=== PATIENT | male | born 1965 | race Caucasian/White ===

== ENCOUNTER 2017-03-28 16:50 | Inpatient (IN) | payer OTHER ==
[~2017-03-28] VITALS: Ht 175.3 cm; Wt 138.6 kg
[2017-03-28 19:54] VITALS: BP 110/62; PULSE 76; RESP 23; O2SAT 97
[2017-03-28] MEDS ORDERED: OXYC-474 PO (20:11)
[2017-03-28] MEDS ORDERED: DOCU250C2 PO (20:11)
[2017-03-28] MEDS ORDERED: ONDA4TAB6 PO (20:11)
[2017-03-28 20:55] VITALS: RESP 15; O2SAT 99
[2017-03-28] MEDS ORDERED: Ondansetron 2 mg/mL 2 mL Inj IVPUSH PRN (21:00)
[2017-03-28] MEDS ORDERED: Polyethylene Glycol (PEG) 17 Gm Powder PEG PRN (21:15)
[2017-03-28] MEDS ORDERED: oxyCODONE 1 mg/mL 5 mL Liquid TUBE PRN (21:15)
[2017-03-28] MEDS ORDERED: Dextrose 10% 250 ML IV PRN (21:20)
--- NOTE | 2017-03-28 21:34 | PCM.HPMED ---
Subjective Date of Service Mar 28, 2017 Primary Provider: Admitting Physician: Yayo Montiel MD Primary Care Physician: Kalpana Arevalo MD Attending Physician: Yayo Montiel MD Admit Status: Critical Care ([place] from [facility]) Chief Complaint: Shortness of breath requiring high flow oxygen History of Present Illness: Massimo Aaron is a 51-year-old male with sleep apnea and recent past medical history remarkable for diagnosis of squamous cell carcinoma of the base of the tongue who presents from [facility] with acute respiratory failure requiring high flow oxygen. Records from [facility] are limited and a request for discharge summary has been placed. According to history obtained from the patient he was seen at [facility] for a biopsy of the base of his tongue which was positive for squamous cell carcinoma for which he has been referred to [facility] for initiation of "chemoradiation" therapy as he is an [place] resident. The plan according to [facility] records is for the patient to be seen by Dr. Calderon and start chemoradiation therapy. The patient states that he has never had a PET scan performed. While at [facility] obtaining a biopsy via laryngoscopy the patient had a significant apnea period requiring urgent/emergent tracheostomy and a PEG tube was eventually placed later . At [facility] the patient required high flow oxygen at night greater than 25 L/m at an FiO2 of more than 0.5. The patient states that he has a history of sleep apnea but does not know the exact etiology if it is central or obstructive. The patient states that he has had a chronic cough for approximately the last year which is worse at night and has noted orthopnea not liking to lie flat. The patient denies headaches, chest pain, abdominal pain, nausea, leg swelling, unusual rashes or bruising or bleeding. Review of Systems: A comprehensive review of systems was obtained and all are negative except for what is included in the history of present illness. 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 Hx Alcohol Use: Yes Alcoholic Drinks Per Day: 1-2 beers a week Hx Substance Use: No Hx Tobacco Use: No Smoking Status: Never Smoker Living Arrangement: with Family Exam Vital Signs Vital Sign - Last Date Time Temp Pulse Resp B/P Pulse Ox O2 Delivery O2 Flow Rate FiO2 03/28/17 20:55 72 15 99 40 30 03/28/17 20:27 Tracheostomy 03/28/17 19:54 37.0 110/62 Exam General: Morbidly obese middle-aged man with tracheostomy in place with high flow oxygen in place and conversational dyspnea Eyes: Pupils equal round and reactive to light, extraocular motion intact, mild icteric sclera, noninjected conjunctiva HENT: Normocephalic atraumatic, moist mucous membranes without central cyanosis , oropharynx clear without purulent exudate or cobblestoning mucosa Neck: Supple, trachea midline with tracheostomy in place no drainage around ostomy site, without noted thyromegaly or JVD Cardiovascular: Regular rate and regular rhythm, S1-S2 present, no S3-S4, without murmurs rubs or gallops noted Lungs: Clear to auscultation bilaterally without wheezing rales or rhonchi Abdomen: Soft, nontender, nondistended, tympanic to percussion, normal active bowel sounds, without organomegaly however difficult to assess due to body habitus, peg tube in place without purulent or serosanguineous drainage around site Extremities: No cyanosis clubbing or edema noted, pulses intact bilaterally at dorsalis pedis and radial : No Chatman catheter in place Skin: Warm and dry Neuro: Nonfocal neurologic exam, cranial nerves II through XII intact, sensation intact in extremities Psych: Normal mood and affect Assessment & Plan Massmio Aaron is a 51-year-old male with sleep apnea and recent past medical history remarkable for diagnosis of squamous cell carcinoma of the base of the tongue who presents from [facility] with acute respiratory failure requiring high flow oxygen. # Acute hypoxic respiratory failure - On physical exam the patient's tracheostomy is patent without drainage, lung sounds are clear, however he has noted conversational dyspnea - The patient states that he has a diagnosis of sleep apnea however he is unsure if it is central or obstructive - The patient was seen at [facility] for squamous cell carcinoma of the base of the tongue making obstructive sleep apnea likely - The patient had a tracheostomy performed at [facility] however required high flow oxygen greater than 25 L a minute at an FiO2 of 0.4 and greater to maintain oxygen saturation at night - Tracheostomy and high flow oxygen order sets in place for respiratory therapy - Obtain discharge summary from [facility] to assess ventilation requirements on high flow oxygen # Newly diagnosed squamous cell carcinoma of the base of the tongue - Diagnosed on pathology report at [facility] - Patient's plan according to the [facility] documentation available is to start "chemoradiation" therapy with [facility] oncology department under the care of - Patient will likely require a PET scan to assess for possible metastatic disease as an outpatient - A consult has been placed for Dr. Calderon if he would like to meet the patient prior to any outpatient appointment - Obtain discharge summary paperwork from [facility] # Chronic sleep apnea - The patient states that he has a diagnosis of sleep apnea however he is unsure if it is central or obstructive - The patient was seen at [facility] for squamous cell carcinoma of the base of the tongue making obstructive sleep apnea likely - Tracheostomy and high flow oxygen order sets in place for respiratory therapy - Patient is likely a chronic CO2 retainer, with this in mind goal O2 therapy for oxygen saturation between 88 and 94% # Chronic morbid obesity - Records indicate that the patient did not require any insulin therapy, with relatively normal blood glucose however the patient has been on clear liquid diet with 3 times daily PEG tube feedings - Hemoglobin A1c ordered - Low correction scale regular insulin - Clear liquid diet ordered - Dietitian consultation given need for PEG tube feedings Pain medications available when necessary, however records indicate that the patient has not requested or required medications recently while at [facility] DVT prophylaxis: Records indicate the patient was giving subcutaneous heparin 5000 3 times a day while at [facility] this will be continued GI prophylaxis: Famotidine IV given patient's recent PEG tube placement CODE STATUS full The patient is admitted to the CCU at inpatient status given her presenting symptoms, likely diagnosis, possible complications, and required treatments expected length of stay is greater than 2 midnights. Pain Evaluation: Adequate Pain Control GI Prophylaxis: H2 pavel VTE Prophylaxis Indicated: Meets Criteria for Anticoag Therapy VTE Prophylaxis: Sub-Q Heparin (Unfractionated) Resuscitation Status: CPR: Attempt Resuscitation Time spent 50 minutes critical time spend Attending Statement The patient was seen and examined together with Dr. Palacios on 03/28 and I agree with the history, exam and plan as outlined in the note above. Zev Piedra DO Mar 28, 2017 21:33 Kvng Aguilar MD Mar 29, 2017 02:05
[2017-03-28 21:50] LABS: Mean Corpuscular Hemoglobin 27.2 pg (27.0-35.0); Mean Corpuscular Volume 81.5 fL (81-100); Platelet Count 438 bil/L (150-400)
[2017-03-28 22:22] LABS: BASOPHILS % (AUTO) 0 % (0-3); EOSINOPHILS % (AUTO) 0 % (0-5); MONOCYTES % (AUTO) 7 % (4-12); NEUTROPHILS % (AUTO) 71 % (40-74)
--- NOTE | 2017-03-28 22:24 | NUR ---
CCU Admit note Received patient direct transfer from [facility] in [place]. Arrived via EMS acls transport @ 1910 via [facility], pt has trach to collar with 7L 02, peg tube clamped. Pt ambulatory, transfer self from [facility] to bed w/o difficulty or sob. IV to SL. Pt on clear liquid diet, which was previously cleared at [facility] to be on clears and getting tube feed boluses TID as well. Pt is then placed on trach to high flow 02 @ 30%/40L. mrsa nasal screen sent. Explained POC to pt and .
[2017-03-28] MEDS ORDERED: Heparin 5,000 Unit/mL Inj ONE (23:11)
[2017-03-28] MEDS: Heparin 5,000 Unit/mL Inj SUBQ SCH (23:14)
[2017-03-29] VITALS (15 sets, daily range): BP systolic 111–129; BP diastolic 53–90; PULSE 60–85; RESP 15–24; O2SAT 90–99
[2017-03-29] MEDS: Insulin Human REGular 300 Unit/3 mL Inj SUBQ SCH ×3 (03:44→14:30)
--- NOTE | 2017-03-29 04:42 | ABG ---
DateTimeAnalyzed 04:36:00 -_ pH ____7.417 - 7.350 7.450 pCO2 ___43.1__ -mmHg 35.0 45.0 pO2 ___69.3__ -mmHg 69.0 116 HCO3- ___27.2__ -mmol/L 22.0 26.0 ABE ____2.8__ -mmol/L -2.0 2.0 tHb ___15.2__ -g/dL O2Hb ___90.8__ -% COHb ____1.3__ -% MetHb ____0.8__ -% sO2 ___92.7__ -% 25.0 FIO2 ___30.0__ -% Drawn By MM - Date/Time Notified____ 04:42:00 -_ Spontaneous_RR ___18.0__ -b/min Liter_Flow ___40.0__ -L/min Oxygen Device 1 HFNC - Notified By MM - Notified Whom DR HASANDRAS - B 758 -mmHg tO2 ___19.4__ -Vol% Kulwinder test _Positive -
[2017-03-29] MEDS: Famotidine Inj 50 ML IV SCH ×2 (08:30→19:55)
[2017-03-29] MEDS: Heparin 5,000 Unit/mL Inj SUBQ SCH ×2 (09:52→17:30)
--- NOTE | 2017-03-29 10:25 | DRSVH ---
PROCEDURE: X-RAY CHEST ONE VIEW, PORTABLE ([id number]) INDICATIONS: hypoxic TECHNIQUE: One view of the chest was acquired. COMPARISON: None. FINDINGS: Surgical changes and devices: Tracheostomy. Partially visualized left upper quadrant surgical tube. Lungs and pleura: No pleural effusions or pneumothorax. Lungs are clear. Mediastinum: Mediastinal contours appear normal. Heart size is normal. Bones and chest wall: No suspicious bony lesions. Overlying soft tissues appear unremarkable. IMPRESSION: Tracheostomy. Lungs are clear. Dictated by: Jim Sales M.D. on 03/29/2017 at 10:21 Approved by: Jim Sales M.D. on 03/29/2017 at 10:22
--- NOTE | 2017-03-29 10:27 | NUR ---
Evaluation completed. Please go to "Notes" then click on "Assessments and Notes" (bottom left corner of screen). Then select appropriate discipline tab on top of screen.
--- NOTE | 2017-03-29 11:26 | PCM.CHPMED ---
Subjective Date of Service: Mar 29, 2017 Provider requesting consult: Yayo Montiel MD Primary Physician: Admitting Physician: Yayo Montiel MD Primary Care Physician: Kalpana Arevalo MD Attending Physician: Yayo Montiel MD Chief Complaint: Chief Complaint: Squamous cell cancer of the base of the tongue History of Present Illness: PULMOLOGY CONSULT NOTE 51 year old male with scant medical hx significant for HILARIO compliant with CPAP who was transferred to our facility from [facility] following an extended stay there after undergoing biopsy of a 3.6cm mass at the base of the tongue. As the story goes, the patient began having progressive dysphagia and cough that began 6 months ago, with 2 episodes of trent hemoptysis that began 3 months. Pt sought out medical care and was seen in urgent care where it was diagnosed as a large epistaxis. His dysphagia continued and he began throwing up undigested food within an hour of eating, many times with it coming out his nose. He was eventual sent to ENT and eventually sent for CT scan which diagnoses a 3.6 cm soft tissue mass and the base of the tongue with high grade narrowing of the airway. The patient was sent to [facility] for biopsy which identified Squamous cell carcinoma with P16 mutation, however, during induction of anesthesia for the procedure the patient became severely apneic and was taken to the OR for emergent tracheostomy placement. This followed with an 8 day stay which included placement of a PEG tube. Initially it appears the pt required significant O2 support, being on 50L High flow. This appears to be weaned down to room air during the days and reapplied while he sleeps due to desaturations. Today he denies any fever, chills, trouble breathing (although he is still learning to talk with the trach), or CP, or nausea. He does show anxiety about switching from high flow but is otherwise complaint free. Review of the patient's social hx reveals he has never smoked or used recreational drugs. He also never chewed tobacco. However, he did grow up in a house with smokers and worked in the [employer] for a number of years. 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 He drinks 1-2 beers/week but much less recently. For what it's worth, no contact with TB and recent PPD was negative. Pulmonology was asked to consult to help evaluate the trach and use of high flow due to nighttime desaturations. Review of Systems: See HPI. 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 Sleep apnea previously diagnosed as obstructive with compliance with CPAP Hx Any Other Health Problems?: NoHx Diabetes: NoBedside Blood Glucose: 112 Surgical History Tracheostomy PEG tube Right hand ORIF Home Medications Oxycodone Ondansetron Allergies: Coded Allergies: No Known Allergies (Verified Allergy, Unknown, 03/28/17) Family History Family History Mother has dementia in her 80s Father had brain cancer in his 50s related to radiation exposure Sister had head and neck cancer of unknown etiology in her 50s 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 Hx Alcohol Use: YesAlcoholic Drinks Per Day: 1-2 beers a week Hx Substance Use: NoHx Tobacco Use: No Smoking Status: Never Smoker Living Arrangement: with Family Exam Vital Signs Vital Sign - Last Date Time Temp Pulse Resp B/P Pulse Ox O2 Delivery O2 Flow Rate FiO2 03/29/17 10:53 65 18 94 6.00 21 03/29/17 08:30 Tracheostomy 03/29/17 08:30 36.5 126/75 Intake and Output 03/28/17 03/28/17 03/29/17 Cumulative From/Thru 15:00 23:00 07:00 03/28/17 20:07 - 03/29/17 06:24 Intake Total 390 ml 390 ml Output Total 300 ml 300 ml Balance 90 ml 90 ml Intake Oral 360 ml 360 ml IV Total 30 ml 30 ml Output Urine Total 300 ml 300 ml # Bowel Movements 0 0 General: Alert, Oriented X3 Head: Normal Eyes: PERRLA, EOMI Mouth: Mucous Membr Moist/[place], Other (unable to view tumor; ) Chest & Lungs: Chest Wall Normal, Expiratory wheezes Cardiovascular: Regular Rate/Rhythm (difficult to auscultate on exam; ) Abdomen: Non-tender, Normoactive bowel tones Extremities: Edema (mild) Neurological: Grossly Neurologically Intact Lab and Diagnostics Result Diagram: 03/28/17213103/28/172131 Assessment & Plan Assessment Most extremely unfortunate 51 year old male with medical hx consisting of HILARIO with stated CPAP compliance who was transferred here from [facility] following biopsy of squamous cell carcinoma at the base of the tongue. During induction of anesthesia the patient became apneic and emergent tach was placed. Due to the size of the tumor it was also decided that the patient would benefit from PEG tube and this was subsequently placed. The patient initially required high flow O2 due to desaturations and continues to require this at night. The pattern of apnea s/p tracehostomy is unlikely to be obstructive, although this could be multi-factorial due to obesity and possible undiagnosed lung disease as he was wheezing on exam, or it could be related to central apnea. We have reviewed the CT from [facility] and the degree of airway obstruction, and with his recent course it is unlikely that he will be able to have the trach removed, at least until after Dr. Mccann (ENT) and Dr Calderon (oncology) are able to see the patient. Discussed plan going forward with the patient and answered questions. Problem List 1. Hypoxic respiratory failure 2. Obstructive sleep apnea; questionable central 3. Squamous Cell Carcinoma of the tongue 4. Obesity Plan 1. Await consults from ENT and ONC 2. Continue with nightime highflow O2 should the patient desaturate; recommend against pushing patient past O2sat 95% 3. Recommend barium swallow to assess for chronic aspiration causing pneumonitis. Problems: Pain Evaluation: Adequate Pain Control GI Prophylaxis: H2 pavel VTE Prophylaxis Indicated: Meets Criteria for Anticoag Therapy VTE Prophylaxis: Sub-Q Heparin (Unfractionated) Resuscitation Status: CPR: Attempt Resuscitation VTE Prophylaxis Contraindicate VTE [facility] Dev Contraindication: Hypervolemia Attending Statement I have seen and examined this patient with the resident physician. Vital signs , labs, imaging have been reviewed. I agree with the assessment and plan above. Please refer to my separately dictated progress note for any modifications to above. Marianna Hoyos M.D. Pulmonary and Critical Care medicine Pager [phone] Misael Jackson DO Mar 29, 2017 11:26 Marianna Hoyos MD Mar 30, 2017 16:11
--- NOTE | 2017-03-29 12:21 | NUR ---
NUTRITION ASSESSMENT: ASSESS: Pt is a 51yo M admitted for acute on chronic respiratory failure. Pt was recently diagnosed with squamous cell ca of the tongue. Pt recently had tracheostomy and PEG placement at [facility]. Per pt, he was originally started on continuous TF at the hospital and then was transitioned to bolus TF. Pt reported that he has been on bolus TF for only two days but was tolerating it well. He was cleared by [facility] for CL diet texture. Pt reported that he wants to just eat CL foods for comfort and wants to get main kcal/pro via TF. Pt is signed up to get home TF via [facility]. Oncology and ENT to consult. PMHX: squamous cell ca of tongue LABS: Reviewed. Cl 94, Bun 37, glu 123, ALT 57, Alb 4.3 MEDS: Reviewed. GI: 0 BM, no reported GI issues with TF tolerance SKIN: no major issues HOME TF: Bolus TF of Impact peptide 1.5 @8:00 500ml bolus, @12:00 500ml bolus, @ 18:00 320ml bolus. Flush PEG w/120ml H20 before and after each bolus. TF provided 1980kcal, 125g pro and 1736ml H20. CURRENT WTS: 138.6kg, BMI 45.1kg/m2, IBW: 72.7kg, adj bw: 89.2kg DIET: CL, PO intake for comfort EST. NEEDS: BMI, ca Kcals: 2230-2675kcal/day (25-30kcal/kg adj bw) Pro: 105-140g/day (1.2-1.5g/kg adj BW) Fluids: ~2500ml/day NUTRITION DIAGNOSIS: 1.) Chew/swallow difficulty related to ca and respiratory issues as evidence by pt with new head and neck ca, need for Tracheostomy and PEG for nutrition NUTRITION INTERVENTION: 1.) Recommend re-start bolus TF. Will use TF formula that is similar to Impact peptide 1.5 as this hospital does not carry Impact 1.5. Recommend bolus 500ml @ 8am, 500ml @ 1200 and 350ml @1800. Recommend fluid flush of 125ml H2O before and after each bolus. TF provides 1980kcal and 92g pro (85% kcal and 88% pro needs) 2.) Recommend continue CL diet or diet per ST. Pt's TF does not meet 100% of estimated needs due to the fact that pt is able to eat some food. Spoke with pt about the fact that his TF does not provide 100% of his protein needs. Discussed a couple options to make sure he gets adequate protein including drink Ensure CL, eat 1 Gelatein/day or add prosouce to TF. Pt opted to tried the geiger Gelatein and pt stated that he liked it so stated he would eat 1/day. 3.) Pt's A1C is 6.0 (pre-diabetes). Will monitor pt's BG levels. If BG levels are elevated he may benefit from formula switch to Glucerna 1.5. The osmolality of Glucerna is much higher than Vital or Impact so it may need to be started at either a lower bolus rate or possibly via continues to establish tolerance. MONITOR / EVAL: TF start, PO intake, GI, wt, labs, POC, nutrition status. Will continue to monitor per high nutrition risk guidelines.
--- NOTE | 2017-03-29 15:48 | NUR ---
Social Work- Initial Assessment/Multidisciplinary Rounds Data: See Initial Assessment for additional information. Pt discussed in rounds. Pt is a 51 year old male admitted for acute on chronic respiratory failure per H&P. Pt is a transfer from [facility] ([place], [place]). Pt is s/p trach/PEG tube placement. Pt's insurance is [employer] and [employer]. Pt's PCP is Kalpana Arevalo MD. SW met with pt at bedside regarding discharge plan, SW role explained. Pt alert and oriented x3. Capacity for self-care assessed. Pt resides in [place] with his where he is independent with ADLs and self care. Pt uses no DME and drives. Pt's is designated personal property assessor-Catherine Aaron [phone]. Verbal consent given to contact pt's if needed. Pt has paperwork from [facility] ([place], [place]). Pt's is DPOA. Pt has no HH or SNF history. Pt has a great support system between family and friends. Pt receives tube feeds and will need coordination of this at discharge if medically indicated. SW received T/C from [facility] regarding pt's tube feedings. Pt was referred to [facility] while at [facility]. Pt confirmed that he is agreeable to using [facility] for services at discharge. Pt has not been referred to any HH services for post-PEG tube management at this time. Pt provided with phone number on whiteboard. Pt has discharge planning checklist and instructed to call if needs arise. Pt agreeable. SW spoke with [facility] regarding referral. Ayanna is following. MARKETING STRATEGIST will assist with coordination of tube feedings and HH services if medically indicated. No discharge planning orders have been placed at this time. Assessment: Pt who is s/p trach/PEG placement. Plan: MARKETING STRATEGIST will assist with coordination of tube feedings and HH services if medically indicated. No discharge planning orders have been placed at this time. Pt anticipated to discharge home with pending medical course. SW will continue to follow. KIM Montanez Addendum: 03/29/17 at 1558 by ROSMERY JIANG SS Amended: Links added.
--- NOTE | 2017-03-29 16:36 | CONS ---
[address] [address] CONSULTATION REPORT PATIENT: PEPE DUGAN : 1965 MR#: [id number] ADMIT: 03/28/2017 JOB ID: [id number] DATE OF SERVICE: 03/29/2017 PULMONARY CONSULTATION NOTE: The patient is a 51-year-old man seen in consultation at the request of Dr. Montiel for evaluation of upper airway obstruction and tracheostomy that was placed recently. The patient was seen and evaluated with resident physician, Dr. Misael Jackson. Please refer to his separate detailed note for additional information. The following is a brief attending note. HISTORY OF PRESENT ILLNESS: The patient is a 51-year-old man with morbid obesity, BMI 45 and history of obstructive sleep apnea who had been having nonspecific symptoms including throwing up food, epistaxis, etc., for a few months. He was evaluated by ENT and found to have a mass in the supraglottic region. He underwent as CT which confirmed at 3.6 cm mass in the supraglottic region that was nearly occluding the upper airway. He was sent to [facility] for biopsies of this but quickly became hypotensive post induction and actually had to have an emergent tracheostomy placed three days ago. I do not yet have complete information regarding this. The records are still pending from [facility] including discharge summary. The patient was transferred here today for follow up care with his oncologic team including chemotherapy and radiation. Because of the tracheostomy, he was sent straight to the ICU but quickly downgraded to [facility]/step-down level because he is not on a ventilator. Of note, he is on high-flow oxygen both in the daytime and at night, although at night, he is having clear desaturations reportedly to the 70s. He is on high-flow oxygen at anywhere from 10-30 L with FiO2 around 30%. With regards to symptoms, he denies any change in breathing. He does have some cough, not much sputum. He has been drinking liquids including water, clear soup and denies any choking spells or difficulty swallowing. He was evaluated by speech today. Past medical history, social history, family history and review of systems as per Dr. Jackson's detailed separate note. Also a complete physical examination is per his note. General: Vital signs reviewed. He is morbidly obese but alert. He is having some difficulty with speech because of the trach as expected. This is a size 8 Shiley with a cuff down, but he does not have a Passy Kendra valve in place and so, for obvious reasons, speech is not clear. Chest is clear to auscultation. LABORATORIES: Reviewed. IMAGING: Chest x-ray shows clear pulmonary parenchyma overall. CT of the neck done March 08, 2017 is notable for a large base of tongue mass that is essentially filling the supraglottic region. ASSESSMENT AND RECOMMENDATIONS: 1. Status post tracheostomy on March 05, 2017. 2. Squamous cell carcinoma of the base of the tongue. 3. Upper airway obstruction secondary to the mass. 4. Acute hypoxic respiratory failure. This 51-year-old man with squamous cell carcinoma of the base of the tongue underwent emergent tracheostomy for complications following induction of anesthesia three days ago. The trach is essentially in place for his airway issues and he already has a PEG tube in place for his swallowing issues. Despite that, he is continuing to drink liquids and I wonder if his hypoxia is related to that. It is possible that he is aspirating all the liquids he is drinking and that is the reason for his hypoxia. I would like to ask speech to consider a swallow evaluation/barium and see if it is actually safe for him to continue to drink liquids. I do not otherwise have a good explanation for daytime hypoxia although nocturnal hypoxia could simply be from obstructive sleep apnea that is untreated at this time and potentially exacerbated by the upper airway obstruction. I considered getting CT scan of his chest/PE study but the findings really are not consistent with that. However, if workup with speech/swallowing is unrevealing, we may want to do that as a next step. Dr. Calderon is his oncologist and the plan is to reportedly do a PET scan next week and initiate therapy next week. In the meantime, the trach does I believe need to stay in until we can relieve this upper airway obstruction and make it safer for him. I will continue to follow.
--- NOTE | 2017-03-29 17:09 | NUR ---
Respiratory/GI Pt off Hi-Flow TC this morning, trial on RA, desat to 80s with minor exertion/talking. Currently on 28% via Venturi TC with SpO2 98%. Intermittent cough, pt self suctions oral and superficial trach secretions; vera in color. Pt denies pain/discomfort. Bolus TFs per PEG tube initiated per RD orders, pt tolerates well. Dr. Hoyos concerned pt may be aspirating clear liquid diet, ordered barium swallow study for tomorrow. ASSEMBLER TYPE BAR AND SEGMENT following. SBA to BSC, uses urinal to void.
--- NOTE | 2017-03-29 18:25 | PCM.PNMED ---
Subjective Date of Service Mar 29, 2017 Subjective Overnight Events: None Today, Patient is resting in bed comfortably and in no acute distress. He mentions he is not feeling short of breath with his tracheotomy. He denies any chest pain, nausea, vomiting, fevers, chills, abdominal pains. Exam Vital Signs Vital Sign - Last Date Time Temp Pulse Resp B/P Pulse Ox O2 Delivery O2 Flow Rate FiO2 03/29/17 04:33 70 18 97 40 30 03/29/17 04:05 Tracheostomy 03/29/17 04:05 36.5 112/65 Intake and Output 03/28/17 03/28/17 03/29/17 Cumulative From/Thru 15:00 23:00 07:00 03/28/17 20:07 - 03/29/17 06:24 Intake Total 390 ml 390 ml Output Total 300 ml 300 ml Balance 90 ml 90 ml Intake Oral 360 ml 360 ml IV Total 30 ml 30 ml Output Urine Total 300 ml 300 ml # Bowel Movements 0 0 Exam General: Morbidly obese middle-aged man with tracheostomy in place with high flow oxygen in place Eyes: Pupils equal round and reactive to light, extraocular motion intact, mild icteric sclera, noninjected conjunctiva HENT: Normocephalic atraumatic, moist mucous membranes, oropharynx clear without purulent exudate or cobblestoning mucosa Neck: Supple, trachea midline with tracheostomy in place no drainage around ostomy site, without noted thyromegaly or JVD Cardiovascular: Regular rate and regular rhythm, without murmurs rubs or gallops noted Lungs: Clear to auscultation bilaterally without wheezing rales or rhonchi Abdomen: Soft, nontender, nondistended, normal active bowel sounds, without organomegaly however difficult to assess due to body habitus, peg tube in place , clean, dry and intact. Extremities: No cyanosis clubbing or edema noted, pulses intact bilaterally at dorsalis pedis and radial Skin: Warm and dry Neuro: Nonfocal neurologic exam, cranial nerves II through XII intact, sensation intact in extremities Psych: Normal mood and affect, alert and oriented x3 Lab and Diagnostics Item Value Date Time Alanine Aminotransferase (ALT/SGPT) 57 U/L H 03/28/172131 Aspartate Amino Transf (AST/SGOT) 34 U/L 03/28/172131 Result Diagram: 03/28/17213103/28/172131 Microbiology Item Value Date Time MRSA (PCR) - Final Complete 03/28/172009 Nose X-Rays, CTs and MRIs 03/29/17 PROCEDURE: X-RAY CHEST ONE VIEW, PORTABLE ([id number]) IMPRESSION: Tracheostomy. Lungs are clear. Dictated and Approved by: Jim Sales M.D. on 03/29/2017 at 10:21 Additional Diagnostics ABG 04:36:00 pH 7.417 pCO2 43.1 pO2 69.3 HCO3 27.2 sO2 92.7 FIO2 30.0 Assessment & Plan Massimo Aaron is a 51-year-old male with sleep apnea and recent past medical history remarkable for diagnosis of squamous cell carcinoma of the base of the tongue who presents from [facility] with acute respiratory failure requiring high flow oxygen. Acute hypoxic respiratory failure - On physical exam the patient's tracheostomy is patent without drainage, lung sounds are clear. The patient states that he has a diagnosis of sleep apnea however he is unsure if it is central or obstructive. The patient was seen at [facility] for squamous cell carcinoma of the base of the tongue making obstructive sleep apnea likely. The patient had a tracheostomy performed at [facility] however required high flow oxygen greater than 25 L a minute at an FiO2 of 0.4 and greater to maintain oxygen saturation at night - Tracheostomy and high flow oxygen order sets in place for respiratory therapy - ABG results as above - Consult ENT to evaluate extent of obstruction. - Pulmonology consulted - Modified barium swallow test 03/30/17 Newly diagnosed squamous cell carcinoma of the base of the tongue Diagnosed on pathology report at [facility] - Consulted Dr. Calderon - per consultation, patient will require outpatient PET scan, likely Sunday04/02/17. He will the need to be prepped for radiation through the week and then possible initiation of Cisplatin 04/09/17. Chronic sleep apnea The patient states that he has a diagnosis of sleep apnea however he is unsure if it is central or obstructive. The patient was seen at [facility] for squamous cell carcinoma of the base of the tongue making obstructive sleep apnea likely - Tracheostomy and high flow oxygen order sets in place for respiratory therapy - Patient is likely a chronic CO2 retainer, with this in mind goal O2 therapy for oxygen saturation between 88 and 94% Chronic morbid obesity - Records indicate that the patient did not require any insulin therapy, with relatively normal blood glucose however the patient has been on clear liquid diet with 3 times daily PEG tube feedings - Hemoglobin A1c pending - Discontinued insulin orders as there is no history of diabetes. - Clear liquid diet - Dietitian consultation given need for PEG tube feedings - Speech evaluation DVT prophylaxis: Records indicate the patient was giving subcutaneous heparin 5000 3 times a day while at [facility] this will be continued GI prophylaxis: Not indicated at this time Pain Evaluation: Adequate Pain Control GI Prophylaxis: H2 pavel VTE Prophylaxis: Sub-Q Heparin (Unfractionated) Resuscitation Status: CPR: Attempt Resuscitation Attending Statement The patient was seen and examined together with Dr. Ojeda on 03/29/2017 and I agree with the history, exam and plan as outlined in the note above. . Kvng Ojeda DO Mar 29, 2017 06:41 Yayo Montiel MD Mar 31, 2017 16:26
--- NOTE | 2017-03-29 18:32 | CONS ---
[address] [address] CONSULTATION REPORT PATIENT: PEPE DUGAN : 1965 MR#: [id number] ADMIT: 03/28/2017 JOB ID: [id number] DATE OF SERVICE: 03/29/2017 REFERRING PHYSICIAN: Glenn Ramires MD, [facility] ([phone], fax [phone]) REASON FOR REFERRAL: A 51-year-old man with a large fungating tumor at the base of the tongue, approximately 3.4 x 2.[address] imaging described as a large oropharyngeal soft tissue mass with high-grade airway narrowing. Biopsy performed on March 20, 2017, results pending officially, but this is suspected to be p16 positive squamous carcinoma and notes from the hospitalist consultation implied that the biopsy is completed and is squamous p16 mutation; this is the report from [facility]; is not yet available. DIAGNOSES: 1. 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 2. The patient is morbidly obese; he weighed 348 pounds by his own report prior to becoming ill and now weighs 308 pounds. 3. The patient has had a recent tracheostomy due to upper airway obstruction, when he was undergoing anesthesia induction at [facility]. 4. Obstructive sleep apnea. The patient has been on CPAP for about six years. 5. Prior right hand open reduction internal fixation from injury. 6. The patient reports hypercholesterolemia. HISTORY OF PRESENT ILLNESS: The patient lives on [facility] and is followed by Dr. Arevalo. He reports now that he has had some symptoms of dysphagia, change in his voice with several bleeds, which at least on one occasion was thought to be a nosebleed on February 08, 2017, but now almost daily blood mixed with secretions that he has to suction out. He also had difficulty swallowing solids and had some regurgitation. He did not have pain. He described that he continues to use CPAP and is morbidly obese and has had a history of obstructive sleep apnea. He was evaluated at [facility] on March 08, [address] scan of the soft tissue of the neck showing a large oropharyngeal soft tissue mass at the level of the base of the tongue/hyoid associated with high-grade airway narrowing also seen with internal foci of gas, raising the possibility of necrosis or infection. No pathologically enlarged lymphadenopathy. There were some nonspecific thyroid nodules subcentimeter. He was seen by Martir Mccann on March 06, 2017, who performed a laryngoscopy flexible. The findings are marked enlargement of the arytenoids and marked posterior arytenoid edema and no obvious masses reported. He was referred to [facility] where he was seen by Dr. Edward Mesa who performed direct laryngoscopy on March 12, 2017, with the finding of a large friable base of the tongue mass. He was scheduled for direct endoscopy and biopsy which was accomplished on March 20, 2017; I do not have the final report but the findings stated a large fungating mass at the base of the tongue, and pathology report is still awaited. The patient was referred to Medical Oncology because of report provided by , a hospitalist, who mentioned that this was a squamous carcinoma, p16 positive. He was able to obtain those records but I was unable find them today. The patient's course was complicated at that time of anesthesia induction. He was going to have a triple endoscopy biopsy, but due to his size and difficulty with intubation, he had a tracheostomy performed on that day and subsequently biopsies. The endoscopy was described as showing a fungating mass at the base of the tongue and that this tumor was grossly resected. Since then, the patient has had convalescence in Intensive Care with difficulty with oxygenation and was transferred here and evaluated by the hospitalist team on March 28 with hypoxic respiratory failure, chronic sleep apnea; probably obstructive, and morbid obesity. The hospitalist team wanted Oncology and Radiation Oncology to be involved in his case, but currently he still in a position of trying to stabilize his oxygenation. He has continued to desaturate at night. PAST MEDICAL HISTORY: Although he is now on a sliding scale insulin, he does not carry a history of diabetes. History of tracheostomy recently. He also had a PEG tube placed at [facility] in anticipation of his course and difficulty eating. Prior right hand open reduction internal fixation. Sleep apnea. The patient states he has been on CPAP for about six years. Hyperlipidemia. CURRENT MEDICATIONS: Are reviewed. In the hospital, he is taking famotidine, insulin sliding scale, heparin, polyethylene glycol, oxycodone, and odansetron. ALLERGIES: None. SOCIAL HISTORY: He was born in [place]. He joined the [employer] in 1993, retired from the [employer] in 2002. 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 He comes with his to whom he has been for 27 years. FAMILY HISTORY: He has a son and a daughter from a previous marriage and a son and daughter from this marriage and three grandchildren all of whom are well. The patient originally had five sisters and three brothers, and one sister with metastatic cancer invading the stomach but she also had breast cancer. The patient does not know the details of this because the sister kept much of this information secret. The patient's other siblings are reasonably well with no major medical problems. Mother is 80 with some dementia. Father with lung cancer and a brain tumor in his 50s. HABITS: The patient is a never smoker and social drinker. REVIEW OF SYSTEMS: Generally, the patient feels tired but he is not dyspneic at this time. Head and neck examination: Had no headaches, visual changes, or sore or dry mouth or eyes. Respiratory: He has a tracheostomy in place and is receiving high-flow oxygen. He is currently comfortable and does not feel dyspneic. Cardiac: No exertional chest pain or palpitations or syncope. GI: The patient has difficulty swallowing solid foods and plans on using his PEG tube for the foreseeable future. : No dysuria or hematuria or other lower urinary tract symptoms. The remainder of the 14 system review is negative. PHYSICAL EXAMINATION: This is a very pleasant, quite large 51-year-old man. His vital signs show a temp of 36.5 this morning at 8:30, current pulse 92, respiratory 24, pulse ox 96% on 10 L. His height and weight are not available at this time, although a weight in the chart shows 138.6 kg on March 28. Head and neck: Normal skin and hair. Male pattern baldness. Pupils equal, round. Oral and oropharyngeal mucosa are clear of thrush or lesions. The neck is negative for lymphadenopathy in the neck, supraclavicular areas. Lung nur are clear to auscultation anteriorly and laterally. The patient has high-flow oxygen and CPAP standing by next to it. Abdomen is markedly protuberant. Active bowel sounds. No tenderness or masses. Extremities show no edema. LABORATORY VALUES: The white count is 16.0 with 71 segs, 22 lymphs, hemoglobin 15.3, hematocrit 45.9, platelets 438. MCV 81.5. Electrolytes normal except for chloride 94, BUN 37, creatinine 0.96. Hemoglobin A1c 6. Glucose 123. ALT 57, somewhat elevated, AST normal at 34, bilirubin 0.9, alkaline phosphate 66, total protein 8.5, albumin 4.3. IMAGING: CT soft tissue neck performed on March 08, 2017 showed a large oropharyngeal mass at the base of the tongue measuring 2.6 x 4.2 cm cross-sectional and 3.4 cm cephalocaudal dimension. ASSESSMENT AND RECOMMENDATIONS: Head and neck cancer. This patient most likely has a squamous carcinoma as described. Will need to get the pathology confirmation, but I believe that Dr. Weiner has already seen that. If this is the case, the patient will need to have combined modality therapy for curative intent. Dr. Glenn Raimres of Radiation Therapy at [facility] has already discussed the approach with the patient using Power Point presentation and indicated that the radiation plan would have to be done after PET-CT scan to determine the extent of disease. We discussed the typical course of radiation therapy which would be 6-7 weeks and the use of chemotherapy during radiation; typically either cisplatin or weekly cisplatin. Dr. Ramires also commented on Erbitux. Generally Erbitux is not given at the same time as cisplatin because of added toxicity but rather as is an alternative to cisplatin treatment. I have requested a PET-CT scan for at the completion of staging for this patient and a Radiation Therapy consult has already been planned and it will be essential that the radiation therapist, whether it be Oma Engle, or Chance, have that PET-CT scan before proceeding with a full evaluation. I counseled the patient that this is a serious illness; that it is life threatening, but that there is a substantial chance for curative treatment, providing the PET-CT scan shows this is localized disease. Managing his care given his level of obesity will be difficult. In my experience, patients who are this obese often have augmented toxicity chemotherapy and we did discuss toxicities of chemotherapy with cisplatin including high-frequency hearing loss, hearing loss, nausea, neuropathy, renal failure, and discussed the general side effects of Erbitux as well. Currently then the plan is to hopefully have the patient stabilized in terms of his desaturation by Sunday so that he can have his PET-CT scan and see Radiation Oncology that week. I counseled the patient and staff that simulation can take up to 10 days and that we would be prepared to start chemotherapy as soon as radiation therapy is ready. I appreciate being asked to see this patient.
[2017-03-30] VITALS (9 sets, daily range): BP systolic 108–153; BP diastolic 69–94; PULSE 58–86; RESP 12–22; O2SAT 93–98
[2017-03-30] MEDS: Heparin 5,000 Unit/mL Inj SUBQ SCH ×3 (00:43→18:09)
[2017-03-30 03:40] LABS: BASOPHILS % (AUTO) 0.2 % (0-3); MONOCYTES % (AUTO) 11.7 % (4-12); NEUTROPHILS % (AUTO) 58.6 % (40-74); Platelet Count 383 bil/L (150-400)
--- NOTE | 2017-03-30 05:45 | NUR ---
Respiratory Pt on 28% FiO2 / 7L O2 through Venturi and trach collar; SpO2 throughout shift between 92-96%. Self-suctioning external trach and oral secretions. SBA to BSC, tolerating well, though reports dyspnea with prolonged talking or exertion. VSS, tele SB/SR 50s-70s.
[2017-03-30] MEDS: Famotidine Inj 50 ML IV SCH ×2 (10:49→20:13)
--- NOTE | 2017-03-30 11:38 | NUR ---
Pt completed a modified barium swallow study. He demonstrated aspiration with thin liquids, but safely tolerated sips of nectar thick liquids from both a cup and a small straw. Recommending a full liquid, nectar thick diet. Continue tube feeds for all nutrition, hydration and medication administration.
--- NOTE | 2017-03-30 12:50 | DRSVH ---
PROCEDURE: X-RAY BARIUM SWALLOW WITH FOOD & VIDEOGRAPHY ([id number]) INDICATIONS: ENT tumor, POSSIBLE ASPIRATION TECHNIQUE: Examination was conducted in conjunction with speech pathology per standard protocol. In the lateral projection, filming was performed of the patient swallowing. AP projection filming may also be performed with patient swallowing. COMPARISON: None. FINDINGS: Function: The oral preparatory phase appears normal, with proper containment. The subsequent oral pr opulsive phase, pharyngeal phase, and esophageal phase of swallowing also appear normal with all prof fered substances. Repeated laryngotracheal penetration and aspiration. No pathologic vallecular pool ing. Morphology: No cricopharyngeal bar is identified. No cervical esophageal webs. No Zenker's diverti culum. No strictures. IMPRESSION: Abnormal modified barium swallow. Tracheal penetration and aspiration did occur with multiple swallow s. Please see speech therapist report for details. Dictated by: Robbi Jeffrey M.D. on 03/30/2017 at 12:47 Approved by: Robbi Jeffrey M.D. on 03/30/2017 at 12:48
--- NOTE | 2017-03-30 15:19 | NUR ---
NUTRITION FOLLOW-UP: ASSESS: Pt is a 51yo M admitted for acute on chronic respiratory failure. 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 Per pt, he was originally started on continuous TF at the hospital and then was transitioned to bolus TF. Pt reported that he has been on bolus TF for only two days but was tolerating it well. He was cleared by [facility] for CL diet texture but pt had MBS today which showed that pt was aspirating thin liquids. has placed pt on FL diet with NT liquids only. Pt reported that he wants to just eat for comfort and wants to get main kcal/pro via TF. Pt is signed up to get home TF via [facility]. Oncology and ENT to consult. Bolus TF was started 03/29 and has been tolerating so far. 0 BM reported yet. PMHX: squamous cell ca of tongue LABS: Reviewed. Bun 31, Glu 109, ALT 48 MEDS: Reviewed. GI: 0 BM, no reported GI issues with TF tolerance SKIN: no major issues HOME TF: Bolus TF of Impact peptide 1.5 @8:00 500ml bolus, @12:00 500ml bolus, @ 18:00 320ml bolus. Flush PEG w/120ml H20 before and after each bolus. TF provided 1980kcal, 125g pro and 1736ml H20. CURRENT WTS: 138.6kg, BMI 45.1kg/m2, IBW: 72.7kg, adj bw: 89.2kg DIET: FL, NT, PO intake for comfort EST. NEEDS: BMI, ca Kcals: 2230-2675kcal/day (25-30kcal/kg adj bw) Pro: 105-140g/day (1.2-1.5g/kg adj BW) Fluids: ~2500ml/day NUTRITION DIAGNOSIS: 1.) Chew/swallow difficulty related to ca and respiratory issues as evidence by pt with new head and neck ca, need for Tracheostomy and PEG for nutrition --PERSISTS NUTRITION INTERVENTION: 1.) Continue bolus TF of Vital 1.5. Will use TF formula that is similar to Impact peptide 1.5 as this hospital does not carry Impact 1.5. Recommend bolus 500ml @ 8am, 500ml @ 1200 and 350ml @1800. Recommend fluid flush of 125ml H2O before and after each bolus. TF provides 2025kcal and 92g pro (90% kcal and 88% pro needs) 2.) Recommend continue diet per ST. Pt's TF does not meet 100% of estimated needs due to the fact that pt is able to eat some food. Spoke with pt about the fact that his TF does not provide 100% of his protein needs. Pt agreed to try Gelatein Plus once/day which provides 150kcal 20g pro. Pt understands that if he decides that he does not want to eat the Gelatein, Prosource can be added to TF to meet protein needs. 3.) Pt's A1C is 6.0 (pre-diabetes). Will monitor pt's BG levels. If BG levels are elevated he may benefit from formula switch to Glucerna 1.5. The osmolality of Glucerna is much higher than Vital or Impact so it may need to be started at either a lower bolus rate or possibly via continuous to establish tolerance. MONITOR / EVAL: TF evan, PO intake, GI, wt, labs, POC, nutrition status. Will continue to monitor per high nutrition risk guidelines.
--- NOTE | 2017-03-30 15:21 | NUR ---
Social Work: Multidisciplinary Rounds Pt discussed in am rounds; sw status remains unchanged. Anticipate that case management will assist with coordination of pt's tube feeds with [facility] when pt is medically stable for d/c home and orders are placed. IT ENGINEER to continue to follow to assess for further d/c needs KIM Hodge
--- NOTE | 2017-03-30 15:57 | PROG NOTE ---
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 INTERVAL HISTORY: He had a barium swallow evaluation done this morning that showed aspiration of liquids; however the liquids were thickened. There was no problem with aspiration. Speech Therapy has changed his diet accordingly. No change in symptoms. He continues to have some cough and sputum. Denies chest pain, fevers, chills. REVIEW OF SYSTEMS: As above. PHYSICAL EXAMINATION: Vital signs reviewed. T-max of 36.9, pulse is 62, respirations 13, BP 116/69, sats 98% on 7 L trach collar. FiO2 of 28%. General: Obese gentleman sitting up in bed. Speaking but some of his speech is not entirely clear because he has an open tracheostomy. He has trach collar in place. LABORATORY DATA: Labs reviewed. ASSESSMENT AND RECOMMENDATIONS: 1. Acute hypoxic respiratory failure on 7 L oxygen/28% FiO2. 2. Squamous cell carcinoma of the base of the tongue, awaiting chemotherapy and radiation. 3. Status post tracheostomy on March 05, 2017. 4. Upper airway obstruction secondary to base of tongue mass. The best explanation I can offer for his hypoxia is a combination of obesity and recurrent aspiration of thin liquids. His diet has been changed to nectar thick liquids alone. ENT was contacted today and agreed that the trach obviously needs to stay in until he has completed chemoradiation therapy for his mass and only then after being re-evaluated by ENT. They will not be seeing him in the hospital but he can follow up as an outpatient with Dr. Mccann for trach management and care. I recommended that we try using nasal cannula oxygen at 2-4 L today during the day and at night to see if he tolerates this. This can be arranged for him to use at home rather than the trach collar. Nocturnal hypoxia would be easily explained by his untreated sleep apnea. It sounds like his resting O2 sats yesterday on room air dropped to 85 when his oxygen was turned off. I am hopeful that this will improve as his aspiration of thin liquids stops. I am available over the weekend for questions. The main goal today is a trial of nasal cannula oxygen, and if he tolerates this, we should choose to arrange for home oxygen for the patient at discharge. He does not need further routine pulmonary followup as long as he follows up with ENT because this is primarily an airway issue not a pulmonary issue.
--- NOTE | 2017-03-30 16:19 | NUR ---
Social Work: Continued Discharge Planning D: NURSE STAFF met with the patient at bedside. Pt is very concerned that his outpatient care has not yet been started. Pt states his preference still remains to use [facility]. He is unsure if a referral had been sent to a home health company for ongoing care of his trach. Pt states he has no preference for HH companies- HH CHOICE LIST PROVIDED. t/c to Ayanna Milester with [facility]. She states that they received the initial order from [facility] but do not have current access to the patient's chart at [facility]. At this time, they have not started the authorization with the insurance. Ayanna is requesting access to follow with pt's care and to start auth. NURSE STAFF spoke with MD about this. He has placed a CM order to arrange for Tube Feeds through [facility]. NURSE STAFF provided [facility] with access. Renetta confirms receipt of this and is follow. She states that she will not be able to obtain any confirmation from pt's insurance until Sunday at the earliest. A: Pt who lives at home in [place] iwth his . P: NURSE STAFF to continue to follow; anticipate pt to discharge home [facility] ofr tube feeds pending auth and finalized orders. NURSE STAFF to rule out HH for further RN needs. KIM Hodge
--- NOTE | 2017-03-30 18:18 | PCM.PNMED ---
Subjective Date of Service Mar 30, 2017 Subjective Overnight Events: None Today, Patient is resting in bed comfortably and in no acute distress. He mentions he is short of breath only while talking, otherwise he is doing well. He denies any chest pain, nausea, vomiting, fevers, chills, abdominal pains. Exam Vital Signs Vital Sign - Last Date Time Temp Pulse Resp B/P Pulse Ox O2 Delivery O2 Flow Rate FiO2 03/30/17 05:37 58 03/30/17 04:53 21 93 10.00 28 03/30/17 00:45 37.0 134/91 Trach Collar Intake and Output 03/29/17 03/29/17 03/30/17 Cumulative From/Thru 15:00 23:00 07:00 03/28/17 20:07 - 03/30/17 05:14 Intake Total 894 ml 720 ml 2004 ml Output Total 300 ml Balance 894 ml 720 ml 1704 ml Intake Oral 360 ml IV Total 0 ml 70 ml 100 ml Tube Feeding 644 ml 400 ml 1044 ml Tube Irrigant 250 ml 250 ml 500 ml Output Urine Total 300 ml # Bowel Movements 0 Exam General: Morbidly obese middle-aged man with tracheostomy in place with high flow oxygen in place Eyes: Pupils equal round and reactive to light, extraocular motion intact, mild icteric sclera, noninjected conjunctiva HENT: Normocephalic atraumatic, moist mucous membranes, oropharynx clear without purulent exudate or cobblestoning mucosa Neck: Supple, trachea midline with tracheostomy in place no drainage around ostomy site, without noted thyromegaly or JVD Cardiovascular: Regular rate and regular rhythm, without murmurs rubs or gallops noted Lungs: Clear to auscultation bilaterally without wheezing rales or rhonchi Abdomen: Soft, nontender, nondistended, normal active bowel sounds, without organomegaly however difficult to assess due to body habitus, peg tube in place , clean, dry and intact. Extremities: No cyanosis clubbing or edema noted, pulses intact bilaterally at dorsalis pedis and radial Skin: Warm and dry Neuro: Nonfocal neurologic exam, cranial nerves II through XII intact, sensation intact in extremities Psych: Normal mood and affect, alert and oriented x3 Lab and Diagnostics Result Diagram: 03/30/17 0320 03/30/17 0320 Microbiology Item Value Date Time MRSA (PCR) - Final Complete 03/28/172009 Nose X-Rays, CTs and MRIs 03/29/17 PROCEDURE: X-RAY CHEST ONE VIEW, PORTABLE ([id number]) IMPRESSION: Tracheostomy. Lungs are clear. Dictated and Approved by: Jim Sales M.D. on 03/29/2017 at 10:21 Additional Diagnostics ABG 04:36:00 pH 7.417 pCO2 43.1 pO2 69.3 HCO3 27.2 sO2 92.7 FIO2 30.0 Swallow Evaluation Pt completed a modified barium swallow study. He demonstrated aspiration with thin liquids, but safely tolerated sips of nectar thick liquids from both a cup and a small straw. Recommending a full liquid, nectar thick diet. Continue tube feeds for all nutrition, hydration and medication administration. Assessment & Plan Massimo Aaron is a 51-year-old male with sleep apnea and recent past medical history remarkable for diagnosis of squamous cell carcinoma of the base of the tongue who presents from [facility] with acute respiratory failure requiring high flow oxygen. Acute hypoxic respiratory failure - On physical exam the patient's tracheostomy is patent without drainage, lung sounds are clear. The patient states that he has a diagnosis of sleep apnea however he is unsure if it is central or obstructive. The patient was seen at [facility] for squamous cell carcinoma of the base of the tongue making obstructive sleep apnea likely. The patient had a tracheostomy performed at [facility] however required high flow oxygen greater than 25 L a minute at an FiO2 of 0.4 and greater to maintain oxygen saturation at night - Tracheostomy and high flow oxygen order sets in place for respiratory therapy - ABG results as above - ENT will follow up as outpatient. Will need appointment at discharge. - Modified barium swallow test 03/30/17, results as above Newly diagnosed squamous cell carcinoma of the base of the tongue Diagnosed on pathology report at [facility] - Dr. Calderon will try to see patient on 04/05/17 as an outpatient - Radiation initial appointment will be on 04/02/17 Chronic sleep apnea The patient states that he has a diagnosis of sleep apnea however he is unsure if it is central or obstructive. The patient was seen at [facility] for squamous cell carcinoma of the base of the tongue making obstructive sleep apnea likely - Will do 2-4L nasal cannula overnight and monitor desaturations. - Patient is likely a chronic CO2 retainer, with this in mind goal O2 therapy for oxygen saturation between 88 and 94% Chronic morbid obesity - Records indicate that the patient did not require any insulin therapy, with relatively normal blood glucose however the patient has been on clear liquid diet with 3 times daily PEG tube feedings - Hemoglobin A1c 6.0 - Discontinued insulin orders as there is no history of diabetes. - Clear liquid diet - Dietitian consultation given need for PEG tube feedings - Speech evaluation DVT prophylaxis: Records indicate the patient was giving subcutaneous heparin 5000 3 times a day while at [facility] this will be continued GI prophylaxis: Not indicated at this time GI Prophylaxis: H2 pavel VTE Prophylaxis: Sub-Q Heparin (Unfractionated) Resuscitation Status: CPR: Attempt Resuscitation Attending Statement The patient was seen and examined together with Dr. Ojeda on 03/30/2017 and I agree with the history, exam and plan as outlined in the note above. . Kvng Ojeda DO Mar 30, 2017 06:40 Yayo Montiel MD Mar 31, 2017 16:28
--- NOTE | 2017-03-30 19:39 | NUR ---
O2/Trach/tube feed Cardiac: Pt denies CP, Tele SR 70s Resp: pt denies SOB, Pt on humidified O2 via venturi collar, SPO2 96-97% on 7L 28%FIO2. Pt is frequently suctioning orally and at his trach. Pt is able to clean and care for trach. Pt went down for barium swallow today and was able to go on RA without any SOB. Discussed decreasing O2 for tonight with RT. RT will look at reducing O2 and removing barriers to discharge. Pt placed on 2L NC. SPO2 95%. Pt tolerating well while awake. GI/: Pt denies N/V/D/C, PEG tube in place, Tube Feeds continue for total of 1350ML. Neuro:
--- NOTE | 2017-03-30 23:11 | NUR ---
TUBE FEED/OXYGEN Pt titrated down to 1-2L O2 sating high 90's @ night. Pt refused last tube feed for the evening, stated he felt great and didn't need it tonight. VSS, no pain, no other issues noted @ this time.
[2017-03-31] VITALS (10 sets, daily range): BP systolic 113–140; BP diastolic 63–80; PULSE 62–78; RESP 13–19; O2SAT 95–97
[2017-03-31] MEDS: Heparin 5,000 Unit/mL Inj SUBQ SCH ×3 (00:08→16:30)
[2017-03-31 03:14] LABS: BASOPHILS % (AUTO) 0.2 % (0-3); EOSINOPHILS % (AUTO) 1.1 % (0-5); MONOCYTES % (AUTO) 11.5 % (4-12); Mean Corpuscular Hemoglobin 27.4 pg (27.0-35.0); Mean Corpuscular Volume 82.4 fL (81-100); NEUTROPHILS % (AUTO) 60.5 % (40-74); Platelet Count 395 bil/L (150-400)
[2017-03-31] MEDS: Famotidine Inj 50 ML IV SCH (08:30)
[2017-03-31] MEDS ORDERED: Famotidine 8 mg/mL 50 mL Suspension PO SCH (09:50)
--- NOTE | 2017-03-31 10:23 | NUR ---
NUTRITION FOLLOW-UP: ASSESS: Pt is a 51 YO male admitted with acute on chronic respiratory failure. 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 Per pt, he was originally started on continuous enteral feeding at the hospital and then was transitioned to bolus enteral feeding. Pt reported that he has been on bolus enteral feeding for only two days but was tolerating it well. He was cleared by [facility] for CL diet texture but pt had MBS today which showed that pt was aspirating thin liquids. has placed pt on FL diet with NT liquids only. Pt reported that he wants to just eat for comfort and wants to get main kcal/pro via enteral feeding. Pt was authorized for home enteral feeding through [facility] with [facility]; however, he will require a reauthorization prior to discharge from [facility]. Case Management reporting that the earliest that insurance authorization can be obtained is Monday 04/02. Bolus enteral feeding was started 03/29 and has been tolerating so far. Nursing reporting that patient refused his last bolus of enteral feeding last night, stating that he felt fine without it. PMHX: Squamous cell carcinoma of tongue. LABS: Reviewed. BUN 28, Glu 118. MEDS:Reviewed. GI: BM x 1 (03/30). SKIN: No major issues reported. Johnnie 21. HOME TF: Bolus enteral feeding Impact Peptide 1.5 @ 8:00 500ml bolus, @ 12:00 500ml bolus, @ 18:00 320ml bolus. Flush PEG w/120ml H20 before and after each bolus. Enteral feeding provided 1980 kcal, 125 g pro and 1736 ml H20. WT: 138.6 kg, BMI 45.1kg/m2, IBW: 72.7kg, adj bw: 89.2kg DIET: FL, NT, PO intake for comfort. PO intake 50-100% trays. EST. NEEDS: BMI, ca Kcals: 2230-2675kcal/day (25-30kcal/kg adj bw) Pro: 105-140g/day (1.2-1.5g/kg adj BW) Fluids: ~2500ml/day NUTRITION DIAGNOSIS: 1) Chew/swallow difficulty related to tongue cancer and respiratory issues as evidence by pt with new head and neck ca, need for Tracheostomy and PEG for nutrition - PERSISTS. NUTRITION INTERVENTION: 1) Continue bolus TF of Vital 1.5. Will use enteral feeding formula that is similar to Impact peptide 1.5 as this hospital does not carry Impact 1.5. Recommend bolus 500 ml @ 8am, 500 ml @ 1200 and 350 ml @1800. Recommend fluid flush of 125ml H2O before and after each bolus. Enteral feeding providing 2025 kcal and 92 g pro (90% kcal and 88% pro needs) 2) Recommend continue diet per ST. Pt's enteral feeding does not meet 100% of estimated needs due to the fact that pt is able to eat some food. RD spoke with pt about the fact that his enteral feeding does not provide 100% of his protein needs. Pt agreed to try Gelatein Plus once/day which provides 150 kcal 20 g pro. Pt understands that if he decides that he does not want to eat the Gelatein, ProSource liquid protein can be added to enteral feeding to meet protein needs. 3) Pt's A1C is 6.0 (pre-diabetes). Will monitor pt's BG levels. If BG levels are elevated he may benefit from formula switch to Glucerna 1.5. The osmolality of Glucerna is much higher than Vital or Impact so it may need to be started at either a lower bolus rate or possibly via continuous to establish tolerance. MONITOR / EVAL: Enteral feeding tolerance, PO intake, GI, wt, labs, POC, nutrition status. Will continue to monitor per high nutrition risk guidelines. Addendum: 03/31/17 at [address] Montiel is discharging patient today. ASHOK Segal, plans to teach the patient how to give himself bolus enteral feeding via syringe. I left several bottles of the formula for the patient to take home and use until [facility] is reauthorized.
--- NOTE | 2017-03-31 11:41 | NUR ---
Home Oxygen Eval Room air @ rest 87% NC @ 2LPM @ rest 95% NC @ 2LPM w/activity 94%
--- NOTE | 2017-03-31 15:17 | NUR ---
Social Work- Discharge/Multidisciplinary Rounds Data: EMR reviewed. Pt is on day 3 of hospitalization for acute on chronic respiratory failure. Per MD, pt is going to discharge today. Discharge orders are not in at this time. Per MD, pt is appropriate to discharge home with tube feeding supplies to get him through the weekend and then [facility] will follow up on Sunday. Per Haily RN director special education at [facility] [place] [facility]. Haily left note for Enteral Feeding Coordinator that pt will be discharging today and that [facility] needs to follow up with pt on Sunday for delivery of supplies and formula after insurance authorization. Per FARHAT note, Ayanna Barone, [facility] liaison, will not be able to begin insurance authorization until Sunday. No auth has been started at this time. was made aware of the above information and feels that discharge is still appropriate. MD feels that HH is not indicated at this time for PEG tube care or trach care. FARHAT spoke with RT regarding pt's suction and supplies through [facility]. RT has coordinated pt's oxygen and suction for home today and then the [facility] RT will meet with pt on Sunday to begin full services. FARHAT spoke with pt and at bedside regarding discharge plan. Pt and are agreeable to discharging home today with the supplies necessary to get them through until Sunday. They requested the contact information of the necessary services ([facility] and [facility]) so that pt would be able to contact them if needed. RT will provide [facility] and PIE CHEF provided contact information for [facility]. Assessment: Pt for whom tube feeding is medically necessary Plan: Pt to discharge home with tube feeding and RT services to begin in full on Sunday. Pt's to provide transportation home. KIM Montanez
--- NOTE | 2017-03-31 16:31 | PCM.DIMED ---
Kvng Ojeda DO 03/31/17 1606: Discharge Instructions Date of Service Mar 31, 2017 Dates of Hospitalization Mar 28, 2017 at 19:12 Discharge Diagnosis Discharge Diagnosis Acute hypoxic respiratory failure Newly diagnosed squamous cell carcinoma of the base of the tongue Chronic sleep apnea Morbid obesity Diet Discharge Diet: Other (Tube feeds as prescribed) Activity Discharge Activity: Limited until seen by PCP (May need to consider more oxygen with increased activity if very short of breath.) Call your provider Call your provider for: Fever or Chills, Shortness of breath, Bleeding, Chest pain, Vomitting, Excessive diarrhea, Weakness (unilateral) Patient Instructions Patient Instructions Follow up Follow up with ENT, Dr. Mccann within 1-2 weeks Follow up with Dr. Calderon, plan to see 04/05/17, call his office to make sure appointment is scheduled as an add on Follow up with Radiation appointment 04/02/17, as discussed Tube Feedings - We have provided you enough to get you through the end of Sunday. 1 bolus of 500 mL of "Vital 1.5" at breakfast and again at lunch 1 bolus of 350 m at Dinner Flush with 120 mL water before and after each meal - If for some reason the authorization for tube feedings does not go through, discuss his with Dr. Calderon immediately for pre authorization. - If you do drink liquids, make sure they are "[place] thick" as thin liquids can go down into your lungs based off your last barium swallow test. Respiratory Care We have ordered supplies for your trach. Trach care: Clean inner cannula and stoma site daily with water and hydrogen peroxide combination Change ties around neck as needed as they get soiled Suction as needed HME: filter at the end of trach when you're not suctioning yourself. This will help humidify the air. Oxygen 2L/min through nasal cannula with activity and sleep. To get a pulse oximeter "oxygen monitor" you can go to [employer] or buy one online. They should be around $30. This will help monitor your oxygenation. Follow-up Provider: Devin Calderon MD Follow-up with PCP in: 1 week (Scheduled appointment 04/05/17) Yayo Montiel MD 04/01/17 0759: Discharge Instructions Attending's Statement The patient was seen and examined together with Dr. Ojeda on 03/31/2017 and I agree with the history, exam and plan as outlined in the note above. . Kvng Ojeda DO Mar 31, 2017 16:06 Yayo Montiel MD Apr 01, 2017 07:59
--- NOTE | 2017-03-31 17:28 | NUR ---
discharge Pt discharged today at 1730. Pt off floor via wheelchair with all belongings in the company of the nurse and to private vehicle. no presciptions given, but pt provided with order sheet for RT goods. Pt sent on O2 and home O2 will be set up with suction tonight. Pt was provided education on trach care and tube feeds. Pt was given trach supplies and tube feed sufficient to supply him through sunday. Follow up appointments explained, pt and have numbers for follow up providers. All questions answered and pt and verbalize understanding.
--- NOTE | 2017-03-31 23:11 | PCM.DC.MED ---
Discharge Summary Date of Service Mar 31, 2017 Dates of Hospitalization Date of Hospital Admission Mar 28, 2017 at 19:12 Date of Discharge: Mar 31, 2017 Providers: Admitting Physician: Yayo Montiel MD Primary Care Physician: Kalpana Arevalo MD Attending Physician: Yayo Montiel MD Hot Strip Mill Inspector: Kvng Ojeda DO Diagnosis at Time of Discharge Diagnosis at Time of Discharge Acute hypoxic respiratory failure Newly diagnosed squamous cell carcinoma of the base of the tongue Chronic sleep apnea Morbid obesity Consultations Oncology, Dr. Calderon Pulmonology, Dr. Hoyos Procedures XRay, CTs & MRIs 03/29/17 PROCEDURE: X-RAY CHEST ONE VIEW, PORTABLE ([id number]) IMPRESSION: Tracheostomy. Lungs are clear. Dictated and Approved by: Jim Sales M.D. on 03/29/2017 at 10:21 Other Diagnostics AB 04:36:00 pH 7.417 pCO2 43.1 pO2 69.3 HCO3 27.2 sO2 92.7 FIO2 30.0 Swallow Evaluation Pt completed a modified barium swallow study. He demonstrated aspiration with thin liquids, but safely tolerated sips of nectar thick liquids from both a cup and a small straw. Recommending a full liquid, nectar thick diet. Continue tube feeds for all nutrition, hydration and medication administration. Brief History History taken from Pulmonology Consult done by Dr. Manuel Aaron is a 51 year old male with past medical history significant for HILARIO compliant with CPAP who was transferred to our facility from [facility] following an extended stay there after undergoing biopsy of a 3.6cm mass at the base of the tongue. The patient began having progressive dysphagia and cough that began 6 months ago, with 2 episodes of trent hemoptysis that began 3 months. He sought out medical care and was seen in urgent care where it was diagnosed as a large epistaxis. His dysphagia continued and he began throwing up undigested food within an hour of eating, many times with it coming out his nose. He was eventual sent to ENT and eventually sent for CT scan which diagnoses a 3.6 cm soft tissue mass and the base of the tongue with high grade narrowing of the airway. The patient was sent to [facility] for biopsy which identified Squamous cell carcinoma with P16 mutation, however, during induction of anesthesia for the procedure the patient became severely apneic and was taken to the OR for emergent tracheostomy placement. This followed with an 8 day stay which included placement of a PEG tube. Initially it appears the patient required significant O2 support, being on 50L High flow. This appears to be weaned down to room air during the days and reapplied while he sleeps due to desaturations. Today he denies any fever, chills, trouble breathing (although he is still learning to talk with the trach), or CP, or nausea. He does show anxiety about switching from high flow but is otherwise complaint free. Review of the patient's social hx reveals he has never smoked or used recreational drugs. He also never chewed tobacco. However, he did grow up in a house with smokers and worked in the [employer] for a number of years. 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 He drinks 1-2 beers/week but much less recently. For what it's worth, no contact with TB and recent PPD was negative. Hospital Course Massimo Aaron is a 51-year-old male with sleep apnea and recent past medical history remarkable for diagnosis of squamous cell carcinoma of the base of the tongue who presents from [facility] with acute respiratory failure requiring high flow oxygen. At [facility], he was initially started on high flow oxygen and was actually able to titrate down quickly on his oxygen needs to a point where he only required 1-2L nasal cannula with minimal desaturation over night. Initially there was some difficulty with weaning the oxygen this due to aspiration and it was determined through barium swallow test that he was aspirating thin liquids, but did well with thick nectar like liquids. During his stay he was restarted on bolus tube feedings. He was taught how to care for his trach and how to administer tube feedings. Home oxygen, suctioning and tube feeds were all ordered for him prior to him being discharged from the hospital. The tube feeds need to have close followup as the preauth does not process till Sunday for this. We have supplied him with enough tube feed to last him till Sunday night. He should have close follow up appointments with Dr. Calderon, Radiation and ENT. Acute hypoxic respiratory failure - The patient states that he has a diagnosis of sleep apnea however he is unsure if it is central or obstructive. The patient was seen at [facility] for squamous cell carcinoma of the base of the tongue making obstructive sleep apnea likely. The patient had a tracheostomy performed at [facility]. - ENT will follow up as outpatient. Will need appointment set up. - Modified barium swallow test 03/30/17, results as above Newly diagnosed squamous cell carcinoma of the base of the tongue Diagnosed on pathology report at [facility] - Dr. Calderon will try to see patient on 04/05/17 as an outpatient. Will need to be scheduled as an add on. - Radiation initial appointment will be on 04/02/17 per discussion. Chronic sleep apnea The patient states that he has a diagnosis of sleep apnea however he is unsure if it is central or obstructive. The patient was seen at [facility] for squamous cell carcinoma of the base of the tongue making obstructive sleep apnea likely - Patient tolerates 1-2 L Nasal cannula with minimal desaturations. Chronic morbid obesity - Hemoglobin A1c 6.0 Exam Vital Signs (Last) Date Time Temp Pulse Resp B/P Pulse Ox O2 Delivery O2 Flow Rate FiO2 03/31/17 16:27 37.1 78 17 131/79 97 Nasal Cannula 2.00 03/30/17 08:36 28 Exam General: Morbidly obese middle-aged man with tracheostomy in place with high flow oxygen in place Eyes: Pupils equal round and reactive to light, extraocular motion intact, mild icteric sclera, noninjected conjunctiva HENT: Normocephalic atraumatic, moist mucous membranes, oropharynx clear without purulent exudate or cobblestoning mucosa Neck: Supple, trachea midline with tracheostomy in place no drainage around ostomy site, without noted thyromegaly or JVD Cardiovascular: Regular rate and regular rhythm, without murmurs rubs or gallops noted Lungs: Clear to auscultation bilaterally without wheezing rales or rhonchi Abdomen: Soft, nontender, nondistended, normal active bowel sounds, without organomegaly however difficult to assess due to body habitus, peg tube in place , clean, dry and intact. Extremities: No cyanosis clubbing or edema noted, pulses intact bilaterally at dorsalis pedis and radial Skin: Warm and dry Neuro: Nonfocal neurologic exam, cranial nerves II through XII intact, sensation intact in extremities Psych: Normal mood and affect, alert and oriented x3 Test 03/28/17 21:32 03/31/17 02:55 Hemoglobin A1c 6.0% (4.8-5.6) Hold Stewart Top Tube Received (Received) White Blood Count 13.1th/mm3 (3.8-10.1) Red Blood Count 5.18mil/mm3 (4.40-5.80) Hemoglobin 14.2g/dL (13.8-17.2) Hematocrit 42.7% (41.0-50.0) Mean Corpuscular Volume 82.4fL (81-100) Mean Corpuscular Hemoglobin 27.4pg (27.0-35.0) Mean Corpuscular Hemoglobin Concent 33.3% (32.0-37.0) Red Cell Distribution Width 12.9% (12.3-15.4) Platelet Count 395bil/L (150-400) Neutrophils (%) (Auto) 60.5% (40-74) Lymphocytes (%) (Auto) 24.9% (14-46) Monocytes (%) (Auto) 11.5% (4-12) Eosinophils (%) (Auto) 1.1% (0-5) Basophils (%) (Auto) 0.2% (0-3) Sodium Level 137mEq/L (134-144) Potassium Level 4.3mEq/L (3.5-5.2) Chloride Level 97mEq/L (97-108) Carbon Dioxide Level 24mmol/L (18-29) Blood Urea Nitrogen 28mg/dL (6-24) Creatinine 0.97mg/dL (0.76-1.27) Estimat Glomerular Filtration Rate 86mL/min (>59) Glucose Level 118mg/dL (60-99) Calcium Level 9.1mg/dL (8.5-10.1) Total Bilirubin 0.7mg/dL (0.0-1.2) Aspartate Amino Transf (AST/SGOT) 24U/L (0-50) Alanine Aminotransferase (ALT/SGPT) 39U/L (0-44) Alkaline Phosphatase 55U/L (25-150) Total Protein 7.5g/dL (6.4-8.4) Albumin 3.9g/dL (3.4-5.0) Microbiology Results Item Value Date Time MRSA (PCR) - Final Complete 03/28/172009 Nose Discharge Medications As needed Docusate Sodium (Docusate Sodium) 250 Mg Capsule 250 MG PO BID PRN PRN For Constipation (Reported) Ondansetron (Zofran) 4 Mg Tablet 4 MG PO Q8HRS PRN PRN For Nausea (Reported) Oxycodone (Roxicodone) 5 Mg Tablet 5 MG PO q4-6 HRS PRN PRN For Pain (Reported) Followup Plan Discharge Diet: Other (Tube feeds as prescribed) Discharge Activity: Limited until seen by PCP (May need to consider more oxygen with increased activity if very short of breath.) Patient Instructions Follow up Follow up with ENT, Dr. Mccann within 1-2 weeks Follow up with Dr. Calderon, plan to see 04/05/17, call his office to make sure appointment is scheduled as an add on Follow up with Radiation appointment 04/02/17, as discussed Tube Feedings - We have provided you enough to get you through the end of Sunday. 1 bolus of 500 mL of "Vital 1.5" at breakfast and again at lunch 1 bolus of 350 m at Dinner Flush with 120 mL water before and after each meal - If for some reason the authorization for tube feedings does not go through, discuss his with Dr. Calderon immediately for pre authorization. - If you do drink liquids, make sure they are "[place] thick" as thin liquids can go down into your lungs based off your last barium swallow test. Respiratory Care We have ordered supplies for your trach. Trach care: Clean inner cannula and stoma site daily with water and hydrogen peroxide combination Change ties around neck as needed as they get soiled Suction as needed HME: filter at the end of trach when you're not suctioning yourself. This will help humidify the air. Oxygen 2L/min through nasal cannula with activity and sleep. To get a pulse oximeter "oxygen monitor" you can go to [employer] [place] or buy one online. They should be around $30. This will help monitor your oxygenation. Follow-up Provider: Devin Calderon MD Follow-up with PCP in: 1 week (Scheduled appointment 04/05/17) Time spent Greater than 30 minutes was spent in preparation of discharge with greater than 50% of that time dedicated to patient counseling and coordination of care. . Attending Statement The patient was seen and examined together with Dr. Ojeda on 03/31/2017 and I agree with the history, exam and plan as outlined in the note above. . copies to: Devin Calderon MD; Martir Mccann MD; Kalpana Arevalo MD, Malik A DO Mar 31, 2017 22:59 Yayo Montiel MD Apr 01, 2017 08:05
== END 2017-03-31 18:00 | disposition home or self-care (01) | DRG 189 ==
LOC: CCU 19:12 → PCC 03-29 11:00
PROVIDERS: ADMIT Internal Medicine; ATTEND Internal Medicine
PROC: 4A033R1 Measurement of Arterial Saturation, Peripheral, Percutaneous Approach (ICD-10-PCS; principal; 2017-03-29)
DX: J96.21 Acute and chronic respiratory failure with hypoxia (principal); Z68.42 Body mass index [BMI] 45.0-49.9, adult; E78.5 Hyperlipidemia, unspecified; C01 Malignant neoplasm of base of tongue; E66.01 Morbid (severe) obesity due to excess calories; G47.33 Obstructive sleep apnea (adult) (pediatric); Z93.0 Tracheostomy status; Z93.1 Gastrostomy status

== ENCOUNTER 2017-04-05 14:05 | Emergency (ER) | payer OTHER ==
[~2017-04-05] VITALS: Ht 175.3 cm; Wt 131.0 kg
[~2017-04-05 14:05] MED LIST: DOCU250C2 PO; ONDA4TAB6 PO; OXYC-474 PO
[2017-04-05 14:09] VITALS: BP 141/96; PULSE 86; RESP 16; O2SAT 96
--- NOTE | 2017-04-05 14:19 | ED.REPORT ---
HPI-General Illness Date of Service Apr 05, 2017 ED Provider: Emigdio Melton MD A 51 year old male with a history of squamous cell carcinoma of the base of the tongue and tracheostomy tube placement is brought to the ED via EMS due to dislodgement of the tracheostomy tube. The tube was placed at [facility] 16 days ago, and the cuff was not inflated. The tube dislodged 45 minutes ago while the pt was being fitted for radiation at [facility]. He denies pain or other associated symptoms at this time and is breathing normally. The pt has a tumor at the base of his tongue, which he states bleeds regularly. No other complaints at this time. Nursing Notes Stated Complaint: TRACH DISLODGED Chief Complaint: Respiratory Distress Nursing Notes Reviewed: Yes Allergies: Coded Allergies: No Known Allergies (Verified Allergy, Unknown, 04/05/17) Scheduled PRN Docusate Sodium (Docusate Sodium) 250 Mg Capsule 250 MG PO BID PRN PRN For Constipation Ondansetron (Zofran) 4 Mg Tablet 4 MG PO Q8HRS PRN PRN For Nausea Oxycodone (Roxicodone) 5 Mg Tablet 5 MG PO q4-6 HRS PRN PRN For Pain General Time Seen by MD: 14:18 Chief Complaint Other (dislodged tracheostomy tube) Hx Obtained From: Patient, EMS Arrived By: Ambulance Sudden in Onset?: Yes Onset Occurred: 31 - 45 minutes ago Symptom Duration: Since onset Severity: Current: No pain currently Recent Healthcare: Recent doctor visit, Recent hospitalization Similar Sx Previous: No Past Medical History Past Medical History squamous cell carcinoma of base of tongue Past Surgical History tracheostomy PEG placement Smoking History Never Smoker Social History Other Social History: Good social support Ambulatory Status Independent Review of Systems dislodged tracheostomy tube Full Review of Systems Cardiovascular: Denies: Chest pain GI: Denies: Abdominal pain, Vomiting Musculoskeletal: Denies: Back pain, Neck pain Skin: Denies Rash Complete sys rev & neg: except as marked. Physical Exam Constitutional: Well-developed, well-nourished. Not diaphoretic. Head: Normocephalic and atraumatic. Mouth/Throat: MMM Eyes: EOM are normal. Pupils are equal, round, and reactive to light. Neck: Supple, no tracheal deviation. Stoma appears to be patent and intact. Cardiovascular: Normal rate, regular rhythm. Equal and intact distal pulses throughout. Pulmonary/Chest: Effort normal and breath sounds normal. No respiratory distress. Abdominal: Soft. No distension. There is no tenderness, rebound, or guarding. Bowel sounds present. Musculoskeletal: Range of motion grossly intact, moving all extremities. No edema or tenderness appreciated. Neurological: AOx3. Grossly nonfocal exam. Strength and sensation intact and equal to bilateral upper and lower extremities. Skin: Warm and dry, no rashes or pallor appreciated. Psychiatric: Appropriate mood and affect. Behavior appears normal. Vital Signs Vital Signs Date Time Temp Pulse Resp B/P Pulse Ox O2 Delivery O2 Flow Rate FiO2 04/05/17 16:30 74 16 124/83 2 04/05/17 15:32 73 18 131/67 96 Nasal Cannula 2 04/05/17 14:09 86 16 141/96 96 Nasal Cannula 2 Initial VS: Reviewed Procedures Intubation Intubation Procedure: Cuffed 7-0 Shiley placed over bougie. Patient did not have obturator with him. Time: 15:05 Procedure Performed by: ED physician Consent / Setup / Site Prep: Informed consent provided, Consent from patient , Oxygen administered, Pulse oximeter applied, surveillance monitor applied, Hand hygiene observed, Stand sterile technique Patient Position: Head extended Blade / ET Tube / Route: Route: via trach stoma ET Confirmation: Direct visualization, BS equal, Rising O2 sat Complications: None Post-Procedure: Condition improved, Tolerated procedure well, Patient stable Re-Eval/Medical Decision Med Decision/Clinical Course In summary, 51-year-old male with a complex history including tongue cancer and tracheostomy placement approximately 17 days ago presenting to the ED for evaluation after having his tracheostomy tube fall out shortly prior to arrival. He is not having any issues with breathing either before or after this , and states that it got nudged out while undergoing a procedure. No increased sputum or bleeding. Placement was greater than 10 days ago, no bleeding. Stoma appears open and intact. Discussed the case briefly with Dr. Burciaga (ENT). Replaced tube over a bougie as per above, tolerated well. Good breath sounds and patient more comfortable after replacement. Observed in the ED for almost an hour and continued to do well. Given above, plan d/c home w/ careful return precautions, PCP f/u, and to keep f/u as scheduled. Patient agreeable to plan, no further questions. Source of Hx: Old records Time of Eval: 15:05 Patient Status: Condition improved Re-Evaluation/Progress Note: Pt rechecked and tracheostomy tube is placed. Pt tolerated the procedure well and there were no complications. Time of Eval: 16:13 Patient Status: Condition improved Re-Evaluation/Progress Note: Pt rechecked, whose condition has improved. He denies any concerning symptoms and would like to be discharged. Consultation #1: Referral / Consult Name: Martir Burciaga MD Consulted With: ENT Call Returned at: 14:43 Hotel Maintenance Worker: Agrees with eval, Agrees with plan Note: Consulted with Dr. Burciaga, ENT, regarding pt's case and plan for replacing tracheostomy tube. Consultation #2: Referral / Consult Name: Martir Burciaga MD Consulted With: ENT Call Returned at: 15:22 Hotel Maintenance Worker: Agrees with eval, Agrees with plan Note: Spoke with Dr. Burciaga regarding pt's case. Dr. Burciaga recommends brief observation prior to discharge. No further imaging is required at this time. Counseled Regarding: Diagnosis, Need for follow-up, When/why to return to ED Discharge & Departure Primary Impression: Encounter for tracheostomy tube change Additional Impression: Complication of tracheostomy tube Disposition: Home Discharge Condition All VS Reviewed: Yes Condition: Stable Patient Instructions: Tracheostomy Care (ED) Additional Instructions: Thank you for allowing us to be a part of your care today. Please follow up with your regular doctor tomorrow. Return to the ED with any difficulty breathing, neck swelling, chest pain, bleeding or increased output from the trach, or anything else of concern to you. Referrals: Kalpana Arevalo MD (PCP) Scribe Attestation Portions of this note were transcribed by Arely Castellanos. I, Dr. Melton personally performed the history, physical exam and medical decision-making; I reviewed and confirmed the accuracy of the information in the transcribed note. copies to: Kalpana Arevalo MD, William B MD Apr 05, 2017 14:18 ARELY CASTELLANOS Apr 05, 2017 15:00
[2017-04-05 15:32] VITALS: BP 131/67; PULSE 73; RESP 18; O2SAT 96
[2017-04-05 16:30] VITALS: BP 124/83; PULSE 74; RESP 16
== END 2017-04-05 16:32 | disposition home or self-care (01) ==
LOC: EDBD 14:05 → EDUNIT# 14:05 → SED 14:05
DX: J95.03 Malfunction of tracheostomy stoma (principal); Z43.0 Encounter for attention to tracheostomy; Z85.810 Personal history of malignant neoplasm of tongue